=== PATIENT | female | born 2000 | race Caucasian/White ===

== ENCOUNTER 2020-03-22 16:13 | Emergency (ER) | payer MEDICAID ==
[~2020-03-22] VITALS: Ht 165.1 cm; Wt 44.2 kg
[2020-03-22] MEDS ORDERED: ONDANSETRON ODT 4 MG PO ONE (17:30)
[2020-03-22] MEDS ORDERED: LORazepam 1MG TABLET PO ONE (17:30)
[2020-03-22] MEDS ORDERED: ONDANSETRON ODT 4 MG ONE (17:33)
--- NOTE | 2020-03-22 17:37 | NUR ---
EKG COMPLETED, OK WITH ERP FOR PT TO HAVE ZOFRAN. WAIT FOR HCG FOR ATIVAN ADMIN. PT TO ALL MONITORS.
[2020-03-22] MEDS ORDERED: INSULIN REGULAR 100 UNITS/ML, 3ML VIAL SQ-INSULIN ONE (18:00)
[2020-03-22 18:17] LABS: BASOPHILS % (AUTO) 0 % (0-1); EOSINOPHILS % (AUTO) 0 % (1-7); LYMPHOCYTES % (AUTO) 4 % (22-44); MEAN CORPUSCULAR HEMOGLOBIN 31.1 pg (27.0-34.8); MEAN CORPUSCULAR HGB CONC 34.6 g/dL (32.4-35.8); MEAN PLATELET VOLUME 6.5 fL (7.4-10.4); MONOCYTES % (AUTO) 3 % (2-9); NEUTROPHILS % (AUTO) 93 % (42-75); PLATELET COUNT 621 x10^3/uL (130-400); RED BLOOD COUNT 4.04 x10^6/uL (3.82-5.3); RED CELL DISTRIBUTION WIDTH 12.8 % (9.6-15.2)
[2020-03-22 18:27] LABS: ALANINE AMINOTRANSFERASE 24 U/L (12-78); ALBUMIN 4.7 g/dL (3.4-5.0); ANION GAP 10 mmol/L (5-15); CALCIUM 9.1 mg/dL (8.5-10.1); CHLORIDE 104 mmol/L (98-107); MD NO
[2020-03-22 18:32] LABS: ALKALINE PHOSPHATASE 105 U/L (45-117); BILIRUBIN,TOTAL 1.1 mg/dL (0.2-1.0); CREATININE 0.67 mg/dL (0.55-1.02); TOTAL PROTEIN 8.4 g/dL (6.4-8.2)
[2020-03-22 18:43] VITALS: BP 119/98
[2020-03-22] MEDS ORDERED: SODIUM CHLORIDE FLUSH 10ML SYR IVF ONE (19:00)
[2020-03-22] MEDS ORDERED: ONDANSETRON 2MG/ML, 2ML IVPush ONE (19:00)
[2020-03-22] MEDS ORDERED: SODIUM CHLORIDE 0.9% 1,000ML IVBOLUS ONE (19:00)
[2020-03-22] MEDS ORDERED: ONDANSETRON 2MG/ML, 2ML ONE (19:19)
[2020-03-22] MEDS ORDERED: LORazepam 2 MG/ML, 1ML ONE (19:20)
--- NOTE | 2020-03-22 19:26 | NUR ---
pt a&ox4, shaking in bed, states it's partially from cold and other is normal, and because she hasn't had her meds. piv intact, and on ns 1000ml infusing for bolus. tolerating well. site cdi, no redness or swelling. meds given per MD orders.
[2020-03-22] MEDS ORDERED: LORazepam 2 MG/ML, 1ML IVPush ONE (20:00)
--- NOTE | 2020-03-22 20:02 | NUR ---
pt awake and alert x4, no distress at this time, no shaking, and ivf completed.
== END 2020-03-22 20:25 | disposition home or self-care (01) ==
LOC: ED 20:09
DX: R10.11 Right upper quadrant pain (principal); R10.12 Left upper quadrant pain; R11.2 Nausea with vomiting, unspecified; F10.10 Alcohol abuse, uncomplicated; R10.84 Generalized abdominal pain; R94.31 Abnormal electrocardiogram [ECG] [EKG]; Y90.0 Blood alcohol level of less than 20 mg/100 ml
CPT/HCPCS: 36415; 80053; 83690; 84703; 85025; 93005; 96361; 96374; 96375; 99284; J2060; J2405; J7030; Q0162